=== PATIENT | female | born 1985 | race Caucasian/White ===

== ENCOUNTER → 2019-07-11 14:40 | Outpatient (CLI) | payer BC, SELFPAY ==
--- NOTE | ~2019-07-11 | US_ITS ---
EXAMINATION: US transvaginal DATE: 07/11/2019 14:56 INDICATION: Polycystic ovary syndrome. Elevated testosterone. Comparison:08/06/2017 TECHNIQUE: Multiple transabdominal and endovaginal sonographic images of the pelvis performed. FINDINGS: The uterus measures 6.7 x 4 x 4.8 cm. The endometrial complex measures 8 mm. The right ovary measures 2.8 x 3 x 1.9 cm and the left ovary measures 2.6 x 2.3 x 1.8 cm. There are small follicles in each ovary. There is a small amount of free fluid in the pelvis. There are no abnormal masses seen on either side . IMPRESSION: 1. Normal pelvic ultrasound. Reviewed, dictated and finalized at location A.
== END ==
PROVIDERS: PCP Physician Assistant; Visit Provider Internal Medicine Endocrinology, Diabetes & Metabolism
DX: E28.2 Polycystic ovarian syndrome (principal)
CPT/HCPCS: 76830

== ENCOUNTER 2022-05-04 12:36 | Emergency (ER) | payer BC, SELFPAY ==
[2022-05-04 12:39] VITALS: BP 114/87; PULSE 120; RESP 20; TEMP 36.4; O2SAT 100
--- NOTE | 2022-05-04 13:24 | ED.EAR ---
HPI - Ear Problem General Chief complaint: Ear Stated complaint: bilateral ear pain Time Seen by Provider: 05/04/22 13:15 History of Present Illness HPI Narrative: 36-year-old female who is 26 weeks presents to the emergency room complaining of bilateral ear pain, sinus drainage and a productive cough for 4 days. Patient has been taking Robitussin and Tylenol with no relief of symptoms. Denies any hearing changes. Related Data Home Medications Medication Instructions Recorded Confirmed prenat.vits,mary grace,[id number] 1 tablet PO DAILY 03/15/20 04/04/22 aspirin 81 mg capsule 81 mg PO DAILY 01/29/22 04/04/22 Allergies Allergy/AdvReac Type Severity Reaction Status Date / Time Sulfa (Sulfonamide Allergy Intermediate Hives / Verified 04/23/22 14:44 Antibiotics) Red Face Penicillins Allergy Unknown Unknown Verified 04/23/22 14:44 sulfanilamide Allergy Unknown Unknown Verified 04/23/22 14:44 Review of Systems Review of Systems: CONSTITUTIONAL: Denies fever, chills, or sweats. EYES: Denies visual changes, redness, or discharge. ENT: Reports rhinorrhea, congestion CARDIOVASCULAR: Denies chest pain, palpitations, or edema. RESPIRATORY: Denies cough or dyspnea. GASTROINTESTINAL: Denies abdominal pain, nausea, vomiting, or diarrhea. GENITOURINARY: Denies dysuria or hematuria. SKIN: Denies rash or itching. MUSCULOSKELETAL: Denies back pain, joint pain, or myalgia. NEUROLOGIC: Denies headache, numbness, dizziness, or weakness. PSYCHIATRIC: Denies anxiety or depression. [facility] Past Medical History Medical History Asthma Iker's disease Infertility, female Vaginal delivery Surgical History Surgical History History of dilation and curettage Family History Family History Other Family history of malignant neoplasm of male breast Family history of malignant neoplasm of ovary Social History Social History Smoking status: Never smoker Second hand tobacco smoke exposure: No Smoking end date: 05/04/07 Alcohol intake: current Exam Narrative: GENERAL: Well-appearing, well-nourished, no physical limitations, and in no acute distress. HEAD: Normocephalic, atraumatic. EYES: Conjunctivae normal, PERRLA and EOMI. ENT: External nose normal, Nares clear, no rhinorrhea or epistaxis. Mucous membranes moist. Oropharynx without tonsillar hypertrophy exudate or other lesions. External ears normal, bilateral TMs normal with clear effusion bilaterally NECK: Supple. No adenopathy or masses. CHEST: Clear to auscultation. No respiratory distress. No wheezes rales or rhonchi. HEART: Regular rate and rhythm. No murmur heard. Normal peripheral pulses. EXTREMITIES: Normal range of motion. No edema. No clubbing or cyanosis SKIN: Warm, dry, no rash. No noted wounds NEURO: No focal deficits. Alert and oriented x3. MAEW. CN's II-XI intact bilaterally, normal gait PSYCH: Cooperative. Normal mood and affect. Course Course Emergency Course: 1345: Spoke to MD Gallo, she is agreeable to Rx of Tyree and Melvin for patient's symptoms. Vital Signs Vital signs: Vital Signs Temperature 36.4 C 05/04/22 12:39 Pulse Rate 120 H 05/04/22 12:39 Respiratory Rate 20 05/04/22 12:39 Blood Pressure 114/87 05/04/22 12:39 Pulse Oximetry 100 05/04/22 12:39 Oxygen Delivery Room Air 05/04/22 12:39 Temperature 36.4 C 05/04/22 12:39 Pulse Rate 120 H 05/04/22 12:39 Respiratory Rate 20 05/04/22 12:39 Blood Pressure 114/87 05/04/22 12:39 Pulse Oximetry 100 05/04/22 12:39 Oxygen Delivery Room Air 05/04/22 12:39 Medical Decision Making Vital Signs Vital Signs: Vital Signs Temperature 36.4 C 05/04/22 12:39 Pulse Rate 120 H 05/04/22 12:39 Respiratory Rate 20
== END 2022-05-04 14:11 | disposition home or self-care (01) ==
PROVIDERS: Emergency Provider Nurse Practitioner Family; PCP Physician Assistant
DX: O99.512 Diseases of the respiratory system complicating pregnancy, second trimester (principal); J06.9 Acute upper respiratory infection, unspecified; O99.891 Other specified diseases and conditions complicating pregnancy; H92.03 Otalgia, bilateral; J45.909 Unspecified asthma, uncomplicated; O99.282 Endocrine, nutritional and metabolic diseases complicating pregnancy, second trimester; E06.3 Autoimmune thyroiditis; Z87.891 Personal history of nicotine dependence; Z79.82 Long term (current) use of aspirin; Z3A.26 26 weeks gestation of pregnancy
CPT/HCPCS: 59025; 96372; 99283; J1100

== ENCOUNTER 2022-07-31 13:33 | Outpatient (RCR) | payer BC, SELFPAY ==
[2022-05-04 12:27] VITALS: BP 121/79; PULSE 114
[2022-07-23 17:43] VITALS: BP 123/83; PULSE 104
[2022-07-28 09:03] VITALS: BP 133/84; PULSE 118
--- NOTE | 2022-07-28 09:51 | PC.NURSE ---
Dr Neal notified of variable decels noted on tracing and US results. OK to mn home.
--- NOTE | ~2022-07-31 | US_ITS ---
EXAMINATION: US OB limited DATE: 07/28/2022 09:26 INDICATION: Variable decelerations. Decreased movement. Third trimester. TECHNIQUE: Real-time pelvic ultrasound was performed. COMPARISON: None. FINDINGS: There is a single living fetus in vertex presentation. The placenta is fundal and posterior. h eart rate is 147 beats per minute (bpm). The cervical length is 5.0 cm on transabdominal images, whic h is normal. The amniotic fluid index is 10.5 cm, which is normal. Biophysical profile performed by the technologist: breathing (30 sec sustained breathing in 30 minutes): 2 out of 2 movement (3 gross body movements in 30 minutes): 2 out of 2 tone (one episode of iifjktb-ysfrdfwre-betrqgf limb movement): 2 out of 2 Amniotic fluid pocket (2 cm): 2 out of 2 Total score: 8 out of 8 IMPRESSION: 1. Single living fetus in vertex presentation. 2. Biophysical profile 8 out of 8. Reviewed, dictated and finalized at location A.
--- NOTE | ~2022-07-31 | US_ITS ---
EXAMINATION: US OB limited DATE: 07/31/2022 14:40 INDICATION: Amniotic fluid index assessment during third trimester TECHNIQUE: Real-time ultrasound of the pelvis was performed. The interpreting radiologist was not pre sent for the study. COMPARISON: None. FINDINGS: There is a single living fetus in vertex presentation. The placenta is to the left. c ardiac activity and movement are noted. heart rate is 137 beats per minute (bpm). The amn iotic fluid index is 11.4 cm which is normal (normal range: 7.3 cm to 23.9 cm). IMPRESSION: 1. Single living fetus in vertex presentation. 2. Normal amniotic fluid index. Reviewed, dictated and finalized at location F.
[2022-07-31 14:45] VITALS: BP 121/81; PULSE 100
== END 2022-08-02 23:59 | disposition home or self-care (01) ==
LOC: ANHOBOP 13:33
PROVIDERS: PCP Physician Assistant; Visit Provider Obstetrics & Gynecology
DX: O36.8120 Decreased fetal movements, second trimester, not applicable or unspecified (principal); Z3A.26 26 weeks gestation of pregnancy; Z3A.37 37 weeks gestation of pregnancy; O09.813 Supervision of pregnancy resulting from assisted reproductive technology, third trimester; Z3A.38 38 weeks gestation of pregnancy
CPT/HCPCS: 59025; 76815

== ENCOUNTER 2022-08-06 08:30 | Inpatient (IN) | payer BC, SELFPAY ==
[2022-08-06] VITALS (119 sets, daily range): BP systolic 98–156; BP diastolic 66–103; PULSE 85–138; TEMP 36.6–36.8; O2SAT 93–100; BMI 27.8
--- NOTE | 2022-08-06 09:04 | LDADM ---
This patient, Komal Stein, was admitted to Labor/Delivery/Recovery 105 on 08/06/22 at 08:30. Plans for labor, pain management and were discussed with patient. Patient/family oriented to hospital policies and general routines including ID bracelet, bed and alarms, visiting hours, pain management, procedures, bathroom and other care routines, personal items, smoking policy, room service/diet and guest tray routines, security routines, and visiting hours. Patient/Family are encouraged to report perceived risks to care and to ask questions if they do not understand what they are told or what they should do. See OBIX for further documentation.
[2022-08-06 09:07] LABS: Basophils Absolute Auto 0.1 K/mm3 (0.0-0.1); Basophils Percent Auto 0.4 % (0.2-1.2); Eosinophils Absolute Auto 0.5 K/mm3 (0-0.3); Eosinophils Percent Auto 3.8 % (0-4.4); Hematocrit 41.5 % (37.0-47.0); Hemoglobin 13.4 g/dL (12.0-15.0); Immature Granulocyte Absolute 0.09 K/mm3 (0.00-0.031); Immature Granulocyte Percent A 0.7 % (0-0.5); Lymphocytes Absolute Auto 2.02 K/mm3 (0.9-3.2); Lymphocytes Percent Auto 16.2 % (18.3-44.2); Mean Corpuscular HGB Conc 32.3 g/dl (32-36); Mean Corpuscular Hemoglobin 27.4 pg (26-34); Mean Corpuscular Volume 84.9 fl (80-100); Mean Platelet Volume 10.2 fl (7.4-10.4); Monocytes Absolute Auto 0.8 K/mm3 (0.1-0.6); Monocytes Percent Auto 6.1 % (2.6-8.5); Neutrophils Absolute Auto 9.1 K/mm3 (1.3-6.7); Neutrophils Percent Auto 72.8 % (45.5-73.1); Platelet Count Result 279 k/mm3 (150-375); Red Blood Count 4.89 M/mm3 (4.2-5.4); Red Cell Distribution Width 16.4 % (11.5-14.5); White Blood Count 12.4 K/mm3 (4.5-10.0)
--- NOTE | 2022-08-06 12:49 | WPDANESEPP ---
Anes - Eval Pre Procedure Procedure: labor epidural Date/Time: 08/06/22 12:49 Preop Diagnosis: labor pain Pre Op Diagnosis: iol Patient Data Age: 37 Gender: F Height: 1.65 m Weight: 76 kg Last Vital Signs Pulse 111 H 08/06/22 09:31 BP 131/92 H 08/06/22 09:31 O2 Del Method Room Air 08/06/22 09:04 Allergies Allergy/AdvReac Type Severity Reaction Status Date / Time Sulfa (Sulfonamide Allergy Intermediate Hives / Verified 07/31/22 14:57 Antibiotics) Red Face Penicillins Allergy Unknown Unknown Verified 07/31/22 14:57 sulfanilamide Allergy Unknown Unknown Verified 07/31/22 14:57 Home Medications Medication Instructions Recorded Confirmed Type prenat.vits,mary grace,[id number] 1 tablet PO DAILY 03/15/20 08/06/22 History aspirin 81 mg capsule 81 mg PO DAILY 01/29/22 08/06/22 History fluticasone propionate 50 1 spray intranasal BID #16 grams 05/04/22 08/06/22 Rx mcg/actuation nasal spray,suspension (Flonase Allergy Relief) ferrous sulfate 325 mg (65 mg 325 mg PO DAILY 07/17/22 08/01/22 History iron) tablet (Iron (ferrous sulfate)) Laboratory Tests 08/06/22 08/06/22 08/06/22 08:58 08:58 08:58 WBC 12.4 K/mm3 H K/mm3 (4.5-10.0) RBC 4.89 M/mm3 M/mm3 (4.2-5.4) Hgb 13.4 g/dL g/dL (12.0-15.0) Hct 41.5 % % (37.0-47.0) MCV 84.9 fl fl (80-100) MCH 27.4 pg pg (26-34) MCHC 32.3 g/dl g/dl (32-36) RDW 16.4 % H % (11.5-14.5) Plt Count 279 k/mm3 k/mm3 (150-375) MPV 10.2 fl fl (7.4-10.4) Immature Gran % (Auto) 0.7 % H % (0-0.5) Neut % (Auto) 72.8 % % (45.5-73.1) Lymph % (Auto) 16.2 % L % (18.3-44.2) [place] % (Auto) 6.1 % % (2.6-8.5) Eos % (Auto) 3.8 % % (0-4.4) Baso % (Auto) 0.4 % % (0.2-1.2) Lymph # (Auto) 2.02 K/mm3 K/mm3 (0.9-3.2) [place] # (Auto) 0.8 K/mm3 H K/mm3 (0.1-0.6) Eos # (Auto) 0.5 K/mm3 H K/mm3 (0-0.3) Baso # (Auto) 0.1 K/mm3 K/mm3 (0.0-0.1) Abs Immat Gran (auto) 0.09 K/mm3 H K/mm3 (0.00-0.031) Absolute Neuts (auto) 9.1 K/mm3 H K/mm3 (1.3-6.7) Absolute Nucleated RBC 0.0 K/mm3 K/mm3 (0.0-0.012) Nucleated RBC % 0.0 % % (0.0-0.2) RPR Pending Blood Type A Positive Antibody Screen Negative Patient hx anesthesia problems: none Family hx anesthesia problems: none Results Review: All pre-operative results and documents have been reviewed as part of the pre-operative evaluation. [facility] Past Medical History Medical History Asthma Iker's disease Infertility, female Vaginal delivery Surgical History Surgical History History of dilation and curettage Family History Family History Mother Breast cancer Hypertension Social History Social History Smoking status: Never smoker Second hand tobacco smoke exposure: No Smoking end date: 05/04/07 Alcohol intake: former Alcohol use details: Not since Substance use: never Lack of Transportation: No Lack of Food: Never True Current Housing: I Have Housing Concerned About Future Housing: No Difficulty Paying Gas/Electric Bills: No Difficulty Paying for Meds: No Currently Unemployed: No Education: Bachelor's Degree Difficulty w/ Childcare or Family Care: No Living arrangements: with family Occupation/Education: occupation Gender identity (if verbalized by the patient): Female Sexual Orientation (if Verbalized by the Patient): Straight or Heterosexual Spiritual care concerns: No Exam Day of Procedure 08/06/22 12:49 Patient weight
[2022-08-06] MEDS: LACTATED RINGERS 1,000 ML 125 ML IV CONT ×2 (13:08→17:05)
[2022-08-06] MEDS: OXYTOCIN 30 UNITS/NS 500 ML 30 UNITS/500 ML BAG IV CONT (13:08)
--- NOTE | 2022-08-06 14:28 | PM.IMHP ---
H&P: HPI History of Present Illness Date/Time: 08/06/22 14:28 Chief Complaint: medical induction of labor Narrative: patient is a at 39-,5/7 weeks based on an EDC of 08/08/2022 by IVF conception. She is here for medical induction of labor. course significant for hypothyroidism thyroid levels have been stable on medication. advanced maternal age. she did have a low-lying placenta until 3rd trimester which did resolve. She has opted for induction of labor with a favorable cervix. Labs have been reviewed. GBS negative. Review of Systems Review of Systems: All systems reviewed & are unremarkable except as noted in HPI and below Constitutional: Constitutional: Reports no additional constitutional complaints and Denies headache(s) Eyes: Eyes: Denies spots in vision ENT: Reports system reviewed and no additional complaints, except as documented and Denies headache(s) Cardiovascular: Cardiovascular: Denies chest pain and Denies dyspnea Respiratory: Respiratory: Denies dyspnea Gastrointestinal: Gastrointestinal: Reports no additional gastrointestinal complaints Genitourinary: Genitourinary: Reports amenorrhea Musculoskeletal: Musculoskeletal: Reports no additional musculoskeletal complaints Integumentary/Breasts: Skin/Breast: Denies breast mass and Denies rash Neurologic: Denies headache(s) Psychiatric: Psychiatric: Reports no additional psychiatric complaints PMFSH Past Medical History Medical History Asthma Iker's disease Infertility, female Vaginal delivery Surgical History Surgical History History of dilation and curettage Family History Family History Mother Breast cancer Hypertension Social History Social History Smoking status: Never smoker Second hand tobacco smoke exposure: No Smoking end date: 05/04/07 Alcohol intake: former Alcohol use details: Not since Substance use: never Lack of Transportation: No Lack of Food: Never True Current Housing: I Have Housing Concerned About Future Housing: No Difficulty Paying Gas/Electric Bills: No Difficulty Paying for Meds: No Currently Unemployed: No Education: Bachelor's Degree Difficulty w/ Childcare or Family Care: No Living arrangements: with family Occupation/Education: occupation Gender identity (if verbalized by the patient): Female Sexual Orientation (if Verbalized by the Patient): Straight or Heterosexual Spiritual care concerns: No Meds Home Medications and Allergies Home Medications Medication Instructions Recorded Confirmed Type prenat.vits,mary grace,[id number] 1 tablet PO DAILY 03/15/20 08/06/22 History aspirin 81 mg capsule 81 mg PO DAILY 01/29/22 08/06/22 History fluticasone propionate 50 1 spray intranasal BID #16 grams 05/04/22 08/06/22 Rx mcg/actuation nasal spray,suspension (Flonase Allergy Relief) ferrous sulfate 325 mg (65 mg 325 mg PO DAILY 07/17/22 08/01/22 History iron) tablet (Iron (ferrous sulfate)) Allergies Allergy/AdvReac Type Severity Reaction Status Date / Time Sulfa (Sulfonamide Allergy Intermediate Hives / Verified 07/31/22 14:57 Antibiotics) Red Face Penicillins Allergy Unknown Unknown Verified 07/31/22 14:57 sulfanilamide Allergy Unknown Unknown Verified 07/31/22 14:57 Vital Signs Vital Signs - 24 hr 08/06/22 09:11 08/06/22 09:16 08/06/22 09:31 Temperature Pulse Rate 110 H 107 H 111 H Blood Pressure 128/92 H 124/88 131/92 H Oxygen Delivery 08/06/22 13:08 08/06/22 13:31 08/06/22 14:00 Temperature 97.9 F Pulse Rate 97 103 H 111 H Blood Pressure 144/89 H 127/84 135/93 H Oxygen Delivery 08/06/22 09:04 Temperature Pulse Rate Blood Pressure Oxygen Deliver
--- NOTE | 2022-08-06 14:31 | PM.OBPNLAB ---
Pain Control Date/time seen: 08/06/22 14:31 Comments: heart tones 140s category 1 tracing occasional contractions cervix 2 60% -3, AROM clear. Will augment with Pitocin if no labor within two hours.
--- NOTE | 2022-08-06 17:46 | WPDANESEPN ---
Anes - Epidural Procedure Note Date/Time: 08/06/22 17:46 Consent: I have discussed with the patient/family/POA, the placement of an epidural catheter and the use of epidural narcotic/local anesthetic for labor analgesia and/or postoperative pain management, including associated potential risks, benefits, complications and side effects. I have discussed alternative methods of labor analgesia and/or postoperative pain management. The patient/family/POA, understand(s) and wish(es) to proceed with epidural narcotic/local anesthetic for labor analgesia and/or postoperative pain management. Time-Out: A pre-procedural Time-Out was completed immediately before starting the procedure and confirmed: Patient Identification, Site, Procedure, Patient Position and the Availability of Requisite Equipment. Clinical Indications: labor pain Epidural Insertion Note Patient position: sitting Skin prep: chlorhexidine and sterile drape Needle: 18g Tuohy-Schliff Catheter: 20g Unstyleted Technique: Loss of resistance. Level of insertion: L3/4 Catheter skin niecy (cm): 4 Length in epidural space (cm): 9 Skin anesthesia: lidocaine 1% Test dose: 1.5% Lidocaine with [id number] Epi, negative for subarachnoid Inj and negative for intravascular Inj Time of test dose: 17:37 Observations: tolerated well Complications: none
[2022-08-07] VITALS (53 sets, daily range): BP systolic 111–145; BP diastolic 66–97; PULSE 95–152; RESP 16–18; TEMP 36.4–37.2; O2SAT 82–100
[2022-08-07] MEDS: OXYTOCIN 30 UNITS/NS 500 ML 30 UNITS/500 ML BAG 999 UNITS IV CONT (01:04)
--- NOTE | 2022-08-07 01:19 | PM.OBPRVD ---
OB - Delivery Note Procedure Delivery date: 08/07/22 Procedure: Spontaneous vaginal delivery Events: Other (IVF conception, Hypothyroidism) Intrapartal Events: Other (maternal tachycardia no fever) Induction method: AROM Delivery augmentation: Pitocin Delivery monitor: External FHT and Internal Uterine Route of delivery: Laceration Description: Labial (left superior) Delivery repair: vicryl (approximated with 3.0 vicryl) Specimen: No Quantitative Blood Loss (ml): 200 Anesthesia type: Epidural Disposition: Floor Complications: None Narrative: She was admitted for [facility]. She had irregular contractions. She has AROM clear at approximately 0815. She was monitored for several hours and was not in active labor. Pitocin was started. She had an epidural placed on request. She progressed to active labor. She dilated to complete and delivered a male infant over intact perineum. Nose mouth suctioned with bulb at perineum. Two loose nuchal cords were manually reduced. The anterior shoulders and then the rest of the baby was delivered. was vigorously crying upon delivery and placed on maternal abdomen. Terminal meconium noted. Delayed cord clamping for 45 sec. and then cord was cut. Cord gases obtained. Placenta delivered spontaneously and intact. She sustained a left superior labia minora laceration. 3.0 vicryl was used for approximation. Hemostasis noted. [place] Baby Date of : 08/07/22 Time of : 12:57 Weeks of gestation at delivery: 39 Infant gender: Male presentation: vertex position: Right Occiput Anterior Placenta delivery description: Spontaneous Cord Vessel Description: 3 Vessels, Nuchal Cord (x2), Loose, Clamped/Cut and Delayed Cord Clamping score one minute: 9 score five minutes: 9
[2022-08-07] MEDS: ACETAMINOPHEN 500 MG TABLET 1000 MG PO (01:45)
[2022-08-07] MEDS: OXYTOCIN 30 UNITS/NS 500 ML 30 UNITS/500 ML BAG 125 UNITS IV CONT (01:45)
--- NOTE | 2022-08-07 04:15 | OBPPTRN ---
Patient transferred to post room #280 via w/c. Support person present. Oriented to unit, room, information board, rooming in, admission packet and security measures. Patient verbalizes understanding.
[2022-08-07] MEDS: DOCUSATE SODIUM 100 MG CAPSULE PO (09:13)
[2022-08-07] MEDS: MULTIVIT/MIN/PREN/FOL AC/IRON TABLET 1 TAB PO (09:13)
[2022-08-07] MEDS: IBUPROFEN 600 MG TABLET PO (09:13)
[2022-08-07 15:09] LABS: Rapid Plasma Reagin Non-Reactive (NonReactive)
--- NOTE | 2022-08-07 16:05 | PC.NURSE ---
[id number] Consulted mother concerning needs. Infant is in the bassinet demonstrating early feeding cues. Reviewed feeding cues with father of baby while mother is in the shower. Encouraged skin to skin with mother when she is out of the shower. Father voiced understanding of education and will call. [phone] Consulted after a request. Mother is attempting to latch her after skin to skin time to the left breast. Mother appears uncomfortable using the cross cradle positioning and received assistance with a different position to see if that was more comfortable. Mother was supported, was supported at nipple level and latched optimally to the right breast using football positioning. Mother is relaxed and comfortable denying pain effectively . Resources used to facilitate learning were used with the tool, mom and baby guide. Mother voiced understanding of skin to skin, stimulating with massage touch, responsive feedings, hand expressed colostrum, talking to infant to encourage if it has been 2 -2.5 hours since the start of the last , to call if infant does not latch, or if there is discomfort with . Mother voiced understanding of information, demonstrated learning and will call if there is a request for assistance. Reported to primary RN.
[2022-08-08 04:36] LABS: Hematocrit 34.4 % (37.0-47.0); Hemoglobin 11.1 g/dL (12.0-15.0)
--- NOTE | 2022-08-08 07:14 | WPDANLDPN2 ---
Anes-Prog Note L&D Date/Time: 08/08/22 07:14 Comfortable throughout: labor and delivery Neuraxial method: epidural Epidural/Spinal procedure site: clean & non-tender Neuro status: Neuro function grossly intact. Cardiovascular status: normal Respiratory status: normal Airway patency: baseline Mental status: baseline Post-Op hydration status: normal Vital Signs: Last Vital Signs Temp 36.4 C 08/07/22 19:40 Pulse 107 H 08/07/22 19:40 Resp 18 08/07/22 19:40 BP 120/80 08/07/22 19:40 Pulse Ox 99 08/07/22 12:17 O2 Del Method Room Air 08/07/22 19:40 Pain score (VAS): 1 I/O: Intake & Output 08/07/22 08/07/22 08/08/22 15:59 23:59 07:59 Intake Total 400 Balance 400 Post-procedural complaints: none Patient feedback: Patient satisfied with anesthetic care.
[2022-08-08 07:40] VITALS: BP 121/89; PULSE 95; RESP 16; TEMP 37.1; O2SAT 100
[2022-08-08] MEDS: MULTIVIT/MIN/PREN/FOL AC/IRON TABLET 1 TAB PO (09:18)
[2022-08-08] MEDS: ACETAMINOPHEN 325 MG TABLET 650 MG PO (09:18)
[2022-08-08] MEDS: DOCUSATE SODIUM 100 MG CAPSULE PO (09:18)
--- NOTE | 2022-08-08 12:24 | PC.NURSE ---
[phone] RN was requested to see patient related to parents were unable to wake to breastfeed. Upon entering RN visualized mother holding swaddled in a cradle position and father of baby in a chair. Introductions were made, then consulted with patient to assess needs related to . Mother led the conversation with her?plans to feed?her infant and the?experience so far. Mother works well with her infant with encouragement and education. Encouraged understanding of the benefits of skin to skin (demonstrating unwrapping infant and placing upright on her chest), stimulating with massage touch, changing positions to encourage wakefulness, how to watch for early feeding cues, responsive feeding, feeding on demand (aiming for 8-12 times in 24 hours, about every 2-3 hours), milk production,hand expression, building/maintaining a milk supply, duration of feeding, signs of adequate intake/output and how to record on the feeding sheet. was able to maintain latch without discomfort to mother and effective breastfeed. Education given to mother of how to visualize suck/swallow ratios and listen for drinking at the breast. Nipple care reviewed with optimal latch and good positioning. Mother led the conversation with her experience and plan to feed her infant so far and her ability to independently latch infant optimally without discomfort. Reminded parents to use good handwashing technique to prevent infection. Mother is feeding appropriately for growth of infant and understands stimulating to eat if needed. Infant has had appropriate feedings in the last 24 hours meets the outcomes for weight, output and jaundice at this time. Reviewed how to best prevent an increase of jaundice with intake and output of stool. Mother states she is confident to continue effectively /pumping her at home, when to call for assistance and denies any additional assistance or education at this time. Reinforced understanding of milk production, transition of milk, signs of adequate intake, transition of stool, prevention/relief of engorgement, responsive watching for feeding cues, the different methods of stimulating infant to breastfeed 2-3 hours after the start of the last feeding, community resources, and when to call a provider using the resource of the mom and baby guide. Mother voiced understanding of the education shared. Reported to the primary RN.
--- NOTE | 2022-08-08 12:31 | PM.OBDSVD ---
DS: Admitting Diagnosis Discharge Date 08/08/22 Admitting Diagnosis intrauterine at term labor OB - DS: Summary OB Procedures : None OB Procedures Intrapartum: Spontaneous Vag Delivery OB Procedures: : None Status at Discharge Functional status at discharge: independent ambulation Overall status at discharge: patient is back to baseline Time Spent with Patient Time attestation: Total time spent providing and/or coordinating discharge services: Time spent: Less than 30 minutes Exam Const: General: comfortable and no acute distress Resp: Effort & Inspection: normal respiratory effort Auscultation: clear to auscultation bilaterally Cardio: Rate: regular rate GI: GI Palp: Yes Soft to palpation Auscultation: normal bowel sounds Other: Fundus firm below umbilicus Psych: Appearance: grossly normal Mental Status: mental status grossly normal Affect: normal affect DS: Data Data Completed and Pending Labs on day of discharge: Labs from last 24 hours 08/08/22 08/06/22 04:16 08:58 Hgb 11.1 L Hct 34.4 L RPR Non-reactive Discharge Plan Discharge Attending physician on discharge: Skyler Neal Discharging Clinician: Maximo Chinchilla Patient Disposition: Home, Self-Care Activity: as tolerated and pelvic rest Diet: regular Patient Instructions: Antibiotic Form, Vaginal Delivery (DC) Stand Alone Forms: General Discharge Information Follow-up/Referrals: Skyler Neal MD [Physician] - Discharge Medications: New acetaminophen 500 mg tablet 500 mg PO Q6H PRN (Reason: pain) Qty: 30 0RF ibuprofen 600 mg tablet 600 mg PO Q6H PRN (Reason: pain) Qty: 30 0RF Continued prenat.vits,mary grace,[id number] Tablet 1 tablet PO DAILY aspirin 81 mg capsule 81 mg PO DAILY ferrous sulfate [Iron (ferrous sulfate)] 325 mg (65 mg iron) Tablet 325 mg PO DAILY fluticasone propionate [Flonase Allergy Relief] 50 mcg/actuation spray,suspension 1 spray intranasal BID Qty: 16 0RF Rx Instructions: administer into each nostril Date of admission: 08/06/22 08:30 Primary Care Provider: DaríoEsther Admitting Provider: Skyler Neal Attending physician on admission: Skyler Neal Condition: Stable
--- NOTE | 2022-08-08 18:54 | PC.NURSE ---
1500 Patient viewed the discharge video Mother & Baby Care, The First Two Weeks . Patient was given the opportunity and encouraged to ask questions. Patient verbalized understanding of information shared and has been given the mother/baby guide for home reference.
[2022-08-11 09:47] VITALS: BP 136/96; PULSE 97; RESP 16; TEMP 36.6; O2SAT 99
== END 2022-08-08 18:02 | disposition home or self-care (01) | DRG 807 ==
LOC: ANHOB2 08-08 16:31 → ANHLDR 08-11 11:58 → ANHOB2 08-11 11:58
PROVIDERS: Admitting Provider Obstetrics & Gynecology; PCP Physician Assistant; Visit Provider Student in an Organized Health Care Education/Training Program
DX: O99.284 Endocrine, nutritional and metabolic diseases complicating childbirth (principal); Z37.0 Single live birth; Z3A.39 39 weeks gestation of pregnancy; E03.9 Hypothyroidism, unspecified; O69.81X0 Labor and delivery complicated by cord around neck, without compression, not applicable or unspecified; O99.42 Diseases of the circulatory system complicating childbirth; R00.0 Tachycardia, unspecified; O70.0 First degree perineal laceration during delivery
CPT/HCPCS: 36415; 59025; 76819; 85014; 85018; 85025; 86592; 86850; 86900; 86901; A9270; J2590; J2795; J7120

== ENCOUNTER 2022-08-11 10:46 | Outpatient (CLI) | payer BC, SELFPAY ==
[2022-08-11 11:00] VITALS: BP 141/89; PULSE 87
[2022-08-11 11:14] LABS: Basophils Absolute Auto 0.1 K/mm3 (0.0-0.1); Basophils Percent Auto 0.8 % (0.2-1.2); Eosinophils Absolute Auto 0.4 K/mm3 (0-0.3); Eosinophils Percent Auto 3.9 % (0-4.4); Hematocrit 38.8 % (37.0-47.0); Hemoglobin 12.4 g/dL (12.0-15.0); Immature Granulocyte Absolute 0.14 K/mm3 (0.00-0.031); Immature Granulocyte Percent A 1.5 % (0-0.5); Lymphocytes Absolute Auto 1.99 K/mm3 (0.9-3.2); Lymphocytes Percent Auto 20.7 % (18.3-44.2); Mean Corpuscular Hemoglobin 27.9 pg (26-34); Mean Corpuscular Volume 87.2 fl (80-100); Mean Platelet Volume 9.7 fl (7.4-10.4); Monocytes Absolute Auto 0.7 K/mm3 (0.1-0.6); Monocytes Percent Auto 6.8 % (2.6-8.5); Neutrophils Absolute Auto 6.4 K/mm3 (1.3-6.7); Neutrophils Percent Auto 66.3 % (45.5-73.1); Platelet Count Result 263 k/mm3 (150-375); Red Blood Count 4.45 M/mm3 (4.2-5.4); Red Cell Distribution Width 15.9 % (11.5-14.5); White Blood Count 9.6 K/mm3 (4.5-10.0)
[2022-08-11 11:15] VITALS: BP 147/87; PULSE 89
[2022-08-11 11:27] LABS: Alanine Aminotransferase 24 U/L (6-35); Albumin Level 3.6 g/dL (3.5-5.1); Alkaline Phosphatase 132 U/L (38-126); Anion Gap 5 mmol/L (8-16); Aspartate Amino Transferase 22 U/L (14-36); Bilirubin,Total 0.4 mg/dL (0.2-1.3); Blood Urea Nitrogen 10 mg/dL (7-17); Calcium 8.5 mg/dL (8.4-10.2); Carbon Dioxide 26 mmol/L (22-30); Chloride 106 mmol/L (98-107); Estimated Glomerular Filt Rate > 60; Glucose 81 mg/dL (65-110); Potassium 4.1 mmol/L (3.4-5.0); Sodium 137 mmol/L (137-145); Uric Acid 5.6 mg/dL (2.5-7.5)
[2022-08-11 11:30] VITALS: BP 141/92; PULSE 89
[2022-08-11 11:45] VITALS: BP 152/101; PULSE 99
--- NOTE | 2022-08-11 11:55 | PC.NURSE ---
Dr Neal reviewed labs per office, ut to [facility]. Instruct patient to take BP daily and follow up in office next week. [facility].
== END 2022-08-11 11:56 | disposition home or self-care (01) ==
LOC: ANHOBOP 10:49 → ANHOBPP 10:50
PROVIDERS: PCP Physician Assistant; Visit Provider Obstetrics & Gynecology
DX: O16.5 Unspecified maternal hypertension, complicating the puerperium (principal)
CPT/HCPCS: 36415; 80053; 84550; 85025; 99199

== ENCOUNTER 2022-09-26 10:21 | Outpatient (CLI) | payer BC, SELFPAY ==
[2022-09-26 11:37] LABS: Hematocrit 45.3 % (37.0-47.0); Hemoglobin 14.9 g/dL (12.0-15.0); Mean Corpuscular HGB Conc 32.9 g/dl (32-36); Mean Corpuscular Hemoglobin 28.4 pg (26-34); Mean Corpuscular Volume 86.3 fl (80-100); Mean Platelet Volume 9.8 fl (7.4-10.4); Platelet Count Result 223 k/mm3 (150-375); Red Blood Count 5.25 M/mm3 (4.2-5.4); Red Cell Distribution Width 13.5 % (11.5-14.5); White Blood Count 4.7 K/mm3 (4.5-10.0)
[2022-09-26 11:51] LABS: Alanine Aminotransferase 151 U/L (6-35); Albumin Level 4.9 g/dL (3.5-5.1); Alkaline Phosphatase 138 U/L (38-126); Anion Gap 8 mmol/L (8-16); Aspartate Amino Transferase 61 U/L (14-36); Bilirubin,Total 0.9 mg/dL (0.2-1.3); Blood Urea Nitrogen 15 mg/dL (7-17); Carbon Dioxide 28 mmol/L (22-30); Chloride 101 mmol/L (98-107); Estimated Glomerular Filt Rate > 60; Glucose 97 mg/dL (65-110); Potassium 4.1 mmol/L (3.4-5.0); Sodium 137 mmol/L (137-145); Uric Acid 5.2 mg/dL (2.5-7.5)
[2022-09-26 12:16] LABS: Free T4 Free Thyroxine 1.03 ng/mL (0.78-2.19)
== END 2022-09-26 10:22 | disposition home or self-care (01) ==
LOC: ANHLAB 10:23
PROVIDERS: PCP Physician Assistant; Visit Provider Registered Nurse
DX: I10 Essential (primary) hypertension (principal)
CPT/HCPCS: 36415; 80053; 84439; 84443; 84550; 85027

== ENCOUNTER 2023-04-10 16:51 | Emergency (ER) | payer BC, SELFPAY ==
[2023-04-10] VITALS (8 sets, daily range): BP systolic 128–155; BP diastolic 93–113; PULSE 85–105; RESP 13–19; TEMP 36.6; O2SAT 98–100
--- NOTE | ~2023-04-10 | CT_ITS ---
EXAMINATION: CT brain wo con DATE: 04/10/2023 17:22 INDICATION: Syncope. TECHNIQUE: Computed tomography (CT) of the head was performed without intravenous contrast. The mA wa s adjusted according to patient size. Iterative reconstruction technique was employed. The dose-lengt h product was 529.67 mGy-cm. COMPARISON: None FINDINGS: There is no intracranial hemorrhage, acute infarction, or abnormal intracranial mass lesion . The ventricles are normal in size. The paranasal sinuses are clear. The mastoid air cells are starla l. The orbits are normal. IMPRESSION: 1. Normal brain. Reviewed, dictated and finalized at location E. ROGRAPHER IMPRESSION: 1. Normal brain.
--- NOTE | ~2023-04-10 | CT_ITS ---
EXAMINATION: CTA brain carotid DATE: 04/10/2023 18:12 INDICATION: Syncope. TECHNIQUE: Computed tomographic angiography (CTA) of the head was performed with 100 mL Omnipaque-350 intravenous contrast. CTA of the neck was performed with intravenous contrast. Automated exposure co ntrol and iterative reconstruction technique were employed. The dose-length product was 919.31 mGy-cm . Maximum intensity projection and volume rendered 3D-reconstructions were created by the [employer] t on a separate workstation. COMPARISON: Head CT 04/10/2023 FINDINGS: HEAD CTA: There is no intracranial hemorrhage, acute infarction, or abnormal intracranial mass lesion. The ventricles are normal in size. The paranasal sinuses are clear. The mastoid air cells are normal. The orbits are normal. The vertebral arteries are codominant. There is no significant thu nosis of basilar artery or the posterior cerebral arteries. The posterior communicating arteries are normal. There is no significant stenosis of the intracranial internal carotid arteries or anterior or middle cerebral arteries. Anterior communicating artery is normal. There is no aneurysm. NECK CTA: There is mild scarring at the lung apices. There are no pathologically enlarged lymph nodes . There is no significant stenosis of the vertebral arteries. There is mild plaque in the proximal in ternal carotid arteries. There is 0% stenosis of the proximal right internal carotid artery relative to normal distal artery lumen diameter (NASCET criteria). There is 0% stenosis of the proximal left i nternal carotid artery relative to normal distal artery lumen diameter. There is mild cervical spondy losis. IMPRESSION: 1. Normal brain. No aneurysm or significant intracranial internal stenosis. 2. 0% stenosis of the proximal internal carotid arteries relative to normal distal artery lumen diame ters (NASCET criteria). Reviewed, dictated and finalized at location E. TANK SEALER AND TESTER IMPRESSION: 1. Normal brain. No aneurysm or significant intracranial internal stenosis. 2. 0% stenosis of the proximal internal carotid arteries relative to normal dis lissa artery lumen diameters (NASCET criteria).
--- NOTE | 2023-04-10 17:04 | ECG_ITS ---
Measurements Intervals [place] Rate: 96 P: 25 VT: 129 QRS: 45 QRSD: 103 T: 45 QT: 346 QTc: 438 Interpretive Statements SINUS RHYTHM INCOMPLETE RIGHT BUNDLE BRANCH BLOCK Electronically Signed On 04-12-2023 10:14:04 STRAP MACHINE OPERATOR AUTOMATIC by Michael Tobar M.D.
--- NOTE | 2023-04-10 17:07 | ED.AMS ---
HPI - Altered Mental Status General Chief Complaint: Altered Mental Status Stated Complaint: ams Time Seen by Provider: 04/10/23 16:59 Source: patient Mode of arrival: EMS Limitations: no limitations History of Present Illness HPI narrative: Patient is a 37-year-old female who presents to the ED via EMS with report of syncope. Patient reports she was walking in her house just prior to arrival when she suddenly experienced vision changes, what she describes as red/green/blue lights in her vision bilaterally. she states it looked like a reflection of Kate lights in her glasses. She was still able to see her surroundings. She went to ask her if her eyes look normal and began feeling lightheaded when she reportedly then had a syncopal episode and fell to the ground. She did hit her head against her stairwell bannister. Per ems report, patient lost consciousness for approx 30 seconds. She did not Bite her tongue or have bowel or bladder incontinence. reported that she had slight shaking/seizure-like activity while on the ground. When she woke up, she was aware of her surroundings and who her was. No postictal phase. She c/o mild VERDUZCO currently. Denies any current vision changes. States her 8mo old daughter has had RSV this week and patient has been more tired than usual. Denies numbness or weakness in arm or leg, nausea, vomiting, dizziness, lightheadedness, chest pain, difficulty breathing. Related Data Home Medications Medication Instructions Recorded Confirmed prenat.vits,mary grace,huw-yogd-wdmye 1 tablet PO DAILY 03/15/20 08/06/22 aspirin 81 mg capsule 81 mg PO DAILY 01/29/22 08/06/22 ferrous sulfate 325 mg (65 mg 325 mg PO DAILY 07/17/22 08/01/22 iron) tablet (Iron (ferrous sulfate)) Allergies Allergy/AdvReac Type Severity Reaction Status Date / Time Sulfa (Sulfonamide Allergy Intermediate Hives / Verified 10/07/22 14:56 Antibiotics) Red Face Penicillins Allergy Unknown Unknown Verified 10/07/22 14:56 sulfanilamide Allergy Unknown Unknown Verified 10/07/22 14:56 Review of Systems Review of Systems: CONSTITUTIONAL: Denies fever, chills, or sweats. EENT: See HPI. CARDIOVASCULAR: Denies chest pain, palpitations, or edema. RESPIRATORY: Denies cough or dyspnea. GASTROINTESTINAL: Denies abdominal pain, nausea, vomiting. MUSCULOSKELETAL: Denies back pain, joint pain, or myalgia. NEUROLOGIC: see HPI. All systems reviewed & are unremarkable except as noted in HPI and below PMFSH Past Medical History Medical History Asthma Iker's disease Infertility, female Vaginal delivery Surgical History Surgical History History of dilation and curettage Family History Family History Mother Breast cancer Hypertension Social History Social History Smoking status: Never smoker Second hand tobacco smoke exposure: No Smoking end date: 05/04/07 Alcohol intake: former Alcohol use details: Not since Substance use: never Lack of Transportation: No Lack of Food: Never True Current Housing: I Have Housing Concerned About Future Housing: No Difficulty Paying Gas/Electric Bills: No Difficulty Paying for Meds: No Currently Unemployed: No Education: Bachelor's Degree Difficulty w/ Childcare or Family Care: No Living arrangements: with family Occupation/Education: occupation Gender identity (if verbalized by the patient): Female Sexual Orientation (if Verbalized by the Patient): Straight or Heterosexual Spiritual care concerns: No Exam Narrative: GENERAL: Well appearing, thin, non-toxic, in no acute distress. HEAD: Normocephalic, atraumatic. EYES: PERRL/EOMI, conjunctivae clear bilaterally. No nystagm
[2023-04-10 17:34] LABS: Basophils Percent Auto 1.1 % (0.2-1.2); Eosinophils Absolute Auto 0.1 K/mm3 (0-0.3); Eosinophils Percent Auto 3.7 % (0-4.4); Hematocrit 42.3 % (37.0-47.0); Hemoglobin 13.2 g/dL (12.0-15.0); Immature Granulocyte Absolute 0.01 K/mm3 (0.00-0.031); Immature Granulocyte Percent A 0.3 % (0-0.5); Immature Platelet Fraction Pct 7.7 % (0.9-11.2); Lymphocytes Absolute Auto 0.95 K/mm3 (0.9-3.2); Lymphocytes Percent Auto 25.1 % (18.3-44.2); Mean Corpuscular HGB Conc 31.2 g/dl (32-36); Mean Corpuscular Volume 83.4 fl (80-100); Mean Platelet Volume 11.3 fl (7.4-10.4); Monocytes Absolute Auto 0.4 K/mm3 (0.1-0.6); Monocytes Percent Auto 9.8 % (2.6-8.5); Neutrophils Absolute Auto 2.3 K/mm3 (1.3-6.7); Platelet Count Result 84 k/mm3 (150-375); Red Blood Count 5.07 M/mm3 (4.2-5.4); Red Cell Distribution Width 15.9 % (11.5-14.5); White Blood Count 3.8 K/mm3 (4.5-10.0)
[2023-04-10 17:42] LABS: Alanine Aminotransferase 57 U/L (6-35); Albumin Level 4.6 g/dL (3.5-5.1); Alkaline Phosphatase 70 U/L (38-126); Anion Gap 10 mmol/L (8-16); Aspartate Amino Transferase 87 U/L (14-36); Bilirubin,Total 1.2 mg/dL (0.2-1.3); Blood Urea Nitrogen 8 mg/dL (7-17); Calcium 9.2 mg/dL (8.4-10.2); Carbon Dioxide 25 mmol/L (22-30); Chloride 99 mmol/L (98-107); Estimated Glomerular Filt Rate > 60; Glucose 152 mg/dL (65-110); Potassium 3.7 mmol/L (3.4-5.0); Sodium 134 mmol/L (137-145)
[2023-04-10 17:43] LABS: INR 0.9; Prothrombin Time 12.8 Seconds (11.1-14.7)
[2023-04-10 17:45] LABS: Partial Thromboplastin Time 22.7 SECONDS (22.3-36.8)
[2023-04-10 17:53] LABS: Troponin I < 0.012 ng/mL (0.000-0.034)
[2023-04-10 18:11] LABS: Appearance Urine Turbid (Clear); Bacteria Urine 4+ /hpf; Bilirubin Urine 2+ (Negative); Blood Urine Negative (Negative); Calcium Oxalate Crystals Urine Present /hpf; Color Urine Dark Yellow (Yellow); Glucose Urine UA Negative (Negative); Ketones Urine 2+ mg/dL (Negative); Leukocyte Esterase Ur Negative LEU/UL (Negative); Nitrate Urine Negative (Negative); Protein Urine 1+ mg/dL (Negative); Specific Grav Ur 1.027 (1.001-1.035); Squamous Epithelial Cell Urine Many /hpf (Few); WBC Urine 0-5 /hpf; pH Urine 5.5 (5.0-9.0)
[2023-04-10 18:12] LABS: Add Urine Microscopic? YES; Amphetamine Screen Urine Negative (Negative); Barbiturate Screen Urine Negative (Negative); Benzodiazepines Screen Urine Negative (Negative); Cannabinoid Screen Urine Negative (Negative); Cocaine Screen Urine Negative (Negative); Methadone Screen Urine Negative (Negative); Opiate Screen Urine Negative (Negative); Phencyclidine Screen Urine Negative (Negative)
[2023-04-10 18:34] LABS: Influenza A QL RT-PCR Negative (Negative); Influenza B QL RT-PCR Negative (Negative); RSV RNA, RT-PCR Negative (Negative); SARS-CoV-2 RNA PCR Negative (Negative)
[2023-04-10 18:39] LABS: Magnesium 1.6 mg/dL (1.6-2.3)
[2023-04-10] MEDS: SODIUM CHLORIDE 0.9% IV 1,000 ML 999 ML IV CONT (18:39)
[2023-04-10] MEDS: MAGNESIUM SULF 1 GM/D5W 100 ML 1 GM/100 ML BAG IVPB (19:00)
--- NOTE | 2023-04-10 19:11 | PC.NURSE ---
This RN assumed care of patient. Patient report was taken from SERENITY Brennan.
--- NOTE | 2023-04-10 21:00 | PC.NURSE ---
EDp BARBER Marie confirmed it was okay for pt to be discharged with elevated vital signs.
== END 2023-04-10 21:04 | disposition home or self-care (01) ==
PROVIDERS: Emergency Provider Physician Assistant; PCP Physician Assistant
DX: R55 Syncope and collapse (principal); H53.59 Other color vision deficiencies; D69.6 Thrombocytopenia, unspecified; Z20.822 Contact with and (suspected) exposure to COVID-19; J45.909 Unspecified asthma, uncomplicated; E06.3 Autoimmune thyroiditis; Z87.891 Personal history of nicotine dependence; I45.10 Unspecified right bundle-branch block
CPT/HCPCS: 36415; 70450; 70496; 70498; 80053; 80307; 81001; 83735; 84484; 85025; 85055; 85610; 85730; 87637; 93005; 96365; 99284; J3475; J7030; Q9967

== ENCOUNTER 2023-11-02 12:36 | Emergency (ER) | payer BC, SELFPAY ==
[2023-11-02 12:42] VITALS: BP 146/104; PULSE 116; RESP 16; TEMP 36.6; O2SAT 100
--- NOTE | 2023-11-02 12:43 | ED.URI ---
HPI - URI/Sore Throat General Chief Complaint: Upper Respiratory Infection Stated Complaint: Cough Source: patient Mode of arrival: ambulatory Limitations: no limitations History of Present Illness HPI Narrative: 38-year-old female presented for complaint of sinus pressure and congestion and cough for about 3 weeks. States chest feels tight due to coughing. Took Dayquil. Denies shortness of breath, wheezing, nausea, vomiting diarrhea, fevers or chills. Related Data Home Medications Medication Instructions Recorded Confirmed amlodipine 5 mg tablet 5 mg PO DAILY 11/02/23 11/02/23 Allergies Allergy/AdvReac Type Severity Reaction Status Date / Time Sulfa (Sulfonamide Allergy Intermediate Hives / Verified 11/02/23 12:38 Antibiotics) Red Face Penicillins Allergy Unknown Unknown Verified 11/02/23 12:38 sulfanilamide Allergy Unknown Unknown Verified 11/02/23 12:38 Review of Systems Review of Systems: CONSTITUTIONAL: Denies body aches, fever, chills, or sweats. ENT: Reports rhinorrhea, congestion, sore throat CARDIOVASCULAR: Denies chest pain, palpitations, or edema. RESPIRATORY: Reports cough, denies sob, wheezing. GASTROINTESTINAL: Denies abdominal pain, nausea, vomiting, or diarrhea. SKIN: Denies rash, itching, or wounds. MUSCULOSKELETAL: Denies back pain, joint pain, or myalgia. NEUROLOGIC: Denies headache, numbness, tingling, or weakness. All systems reviewed & are unremarkable except as noted in HPI and below PMFSH Past Medical History Medical History Asthma Iker's disease Infertility, female Vaginal delivery Surgical History Surgical History History of dilation and curettage Family History Family History Mother Breast cancer Hypertension Social History Social History Smoking status: Never smoker Second hand tobacco smoke exposure: No Smoking end date: 05/04/07 Alcohol intake: former Alcohol use details: Not since Substance use: never Lack of Transportation: No Lack of Food: Never True Current Housing: I Have Housing Concerned About Future Housing: No Difficulty Paying Gas/Electric Bills: No Difficulty Paying for Meds: No Currently Unemployed: No Education: Bachelor's Degree Difficulty w/ Childcare or Family Care: No Living arrangements: with family Occupation/Education: occupation Gender identity (if verbalized by the patient): Female Sexual Orientation (if Verbalized by the Patient): Straight or Heterosexual Spiritual care concerns: No Comments At time of signature, I have reviewed and agree with nursing past medical, surgical, social and family history unless otherwise noted. Please see nursing chart for further information. There is no relevant family history pertinent to the presenting complaint Exam Narrative: GENERAL: Well-appearing, in no acute distress. EYES: EOMI. No redness or drainage. Conjunctivae normal. ENT: Mucous membranes pink and moist. No rhinorrhea. TMs normal bilaterally. Throat normal. Uvula midline. NECK: Normal AROM. Supple. CHEST: No respiratory distress. Lungs clear to all olm[place]. HEART: Regular rate and rhythm. No murmur appreciated. ABDOMEN: Soft, nontender, nondistended, normal active bowel sounds. EXTREMITIES: Normal range of motion. No edema. SKIN: Warm, dry, no rash. Capillary refill normal. Normal skin turgor. NEURO: Alert and oriented x3. Gait steady. PSYCH: Normal affect. Course Course Emergency Course: Patient is aware of diagnosis, understands and agrees to treatment plan. Anticipatory guidance given. Patient agrees to follow-up as directed and is aware of reasons to seek care at the emergency department. Portions of this record may have been created wi
== END 2023-11-02 13:00 | disposition home or self-care (01) ==
PROVIDERS: Emergency Provider Nurse Practitioner Family; PCP Physician Assistant
DX: J32.9 Chronic sinusitis, unspecified (principal); Z87.891 Personal history of nicotine dependence; J45.909 Unspecified asthma, uncomplicated; E06.3 Autoimmune thyroiditis
CPT/HCPCS: 99213; G0463

== ENCOUNTER 2024-06-08 15:25 | Outpatient (CLI) | payer BC, SELFPAY ==
--- NOTE | ~2024-06-08 | MM_ITS ---
EXAMINATION: MM screening deonna BI w rico HISTORY: Screening TECHNIQUE: Craniocaudal and mediolateral oblique 3-D tomosynthesis images were obtained and synthetic 2-D images were generated. CAD analysis was submitted and interpreted. COMPARISON: No prior mammogram is available for comparison at this institution. BREAST PARENCHYMAL COMPOSITION: Dense: The breasts are heterogeneously dense, which may obscure small masses FINDINGS: There is no evidence of suspicious mass, calcification, or architectural distortion to sugg est malignancy in either breast. There has been no suspicious interval change. IMPRESSION: 1. No mammographic evidence of malignancy. 2. Recommend routine screening mammography in one year. BI-RADS Category 1: Negative Reviewed, dictated and finalized at location B. NUE ENFORCEMENT AGENT
--- OUTSIDE RECORDS SUMMARY | 2024-06-08 15:54 | XMS_ITS | Clinical Summary ---
Author Organization [facility] Physician Office Building [address] [place] [phone] Care Team Providers Care Saddle And Harness Maker Name Role Phone Esther Chanel Primary Care Pr ovider Allergies Active Allergy Reactions Criticality Noted Date Comments Penicillins Hives Medium 05/10/2019 Sulfa (Sulfonamide Antibiotics) Hives Medium 11/2019 Medications vit 64-kgvd-dypjt- dha 27mg iron- 800 mcg-250 mg capsule Take 1 tablet/capsul e by mouth daily Active mupirocin (BACTROBAN) 2 % ointment Apply topically 3 (three) times a day 60 g 06/02/19 25 Active methylPREDNISo lone (MEDROL DOSEPACK) 4 mg Dosepack Take as directed on package. 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 L T4 replacement if with the patient's hypothyroid or thyroid suppression if the patient hyperthyroid. The use of L T4 replacement patient with normal TSH, head is controversial but her customary. It has shown sometimes to improve patient's symptoms and prevention of the progression to full blown hypothyroidism. However 1 must be careful to keep the TSH within normal range and avoiding iatrogenic hyperthyroidism. Also the use of anti-inflammatory medications like and NSAIDs and / or steroids is indicated patient with moderate to severe local symptoms. I have advised her to take a aspirin 325 mg 2- 3 times a day to see this helps with the tenderness Will recheck thyroid function tests including TSH free T4 and T3 and will adjust dose of the levothyroxine accordingly Encounters Date Type Department Care Team Description 06/02/2024 11:45 AM ASSOCIATE AGENT INSURANCE SALES Telemedicine [facility] Medical Group Virtual Care [address] [place] [phone] Yarelis Salgado NP Dermatitis (Primary Dx) 06/02/2024 Patient Self-Triage [facility] HealthCare/ Physicians [address] [place] [phone] Mychart, Generic Provider 06/02/2024 Patient Self-Triage [facility]/ Physicians [address] [place] [phone] Mychart, Generic Provider 03/11/2024 4:11 AM ASSOCIATE AGENT INSURANCE SALES - 03/11/2024 11:59 PM ASSOCIATE AGENT INSURANCE SALES Hospital Encounter [facility] [address], [address] [place] [address] Discharge Disposition: Discharge to home or self care from Last 3 Months Surgical History Surgery Date Site/Laterality Comments DILATION AND CURETTAGE OF UTERUS 05/04/2018 - 05/03/2019 Missed Ab Medical History Medical History Date Comments Anxiety Fatigue Asthma Iker's thyroiditis Hypertension Family History Medical History Relation Name Comments Heart disease Father Hypertension Father Thyroid disease Father Breast cancer Mother Cancer Mother Hypertension Mother Infertile Mother Migraines Mother Seizures Mother Thyroid cancer Paternal Grandmother Relation Name Status Comments Father Mother Paternal Grandmother Social History Tobacco Use Types Packs/Day Years Used Date Smoking Tobacco: Never Cigarettes Smokeless Tobacco: Never Alcohol Use Standard Drinks/Week Comments Yes 0 (1 standard drink = 0.6 oz pur e alcohol) 1-2 AUDIT-C Answer Date Recorded Frequency of Alcohol Consumption Not on file 09/04/2020 Q2: How many drinks containi ng alcohol do you have on a typical day when you are drinking? 7 to 9 09/04/2020 Frequency of Binge Drinking Not on file 08/2020 PHQ-2 Answer Date Recorded PHQ-2 Score 1 05/10/2019 Comments Unknown Sex and Gender Information Value Date Recorded Sex Assigned at Not on file Legal Sex Female 3:13 PM ASSOCIATE AGENT INSURANCE SALES Gender Identity Female 09/04/2020 9:45 AM CDT Sexual Orientation Not on file Obstetrics History Para Term AB IAB SAB Ectopic Multiple Livin g Live Births 5 1 1 3 1 1 1 Date Outcome GA Total Labor Labor/2nd/3rd Weight Sex Type Anes PTL Lucrecia A1 A5 Name Clin 2014 Term 3.317 kg (7 lb 5 oz) F Vag-S pont Living 9 AB 12w 0d D&C 9 AB 6w0 d SAB 2 SAB Comments G1 - spontaneous conception G2 - Trisomy 21 on genetic testing G3 - biochemical G4 - 1D5 ET on 07/08/21, bichemical G5 - 1d5 ET on 11/20/21 Last Filed Vital Signs Vital Sign Reading Time Taken Comments Blood Pressure 118/78 01/02/2022 11:04 AM CDT Pulse 75 12/26/2021 1:26 PM CDT Temperature 36.7 C (98.1 F) 07/03/2021 10:26 AM ASSOCIATE AGENT INSURANCE SALES Respiratory Rate 20 07/03/2021 11:25 AM ASSOCIATE AGENT INSURANCE SALES Oxygen Saturation 100% 07/03/2021 11:25 AM ASSOCIATE AGENT INSURANCE SALES Inhaled Oxygen Concentration - - Weight 56.7 kg (125 lb) 01/02/2022 11:04 AM CDT Height 167.6 cm (5' 6 ) 12/26/2021 1:26 PM CDT Body Mass Index 20.18 12/26/2021 1:26 PM CDT Plan of Treatment Health Maintenance Due Date Last Done Comments Cervical Cancer Screening 1985 DTaP/Tdap/Td Vaccine (1 - Tdap) 1996 Varicella Vaccines (1 of 2 - 13+ 2-dose series) 1998 Hepatitis B Screening 2003 Regular Well Visit/Exam 18-64 2003 Depression Screening 05/10/2020 05/10/2019 Influenza Vaccine (#1) 2024 03/10/2020 Hepatitis C Screening Completed 04/02/2021 HPV Vaccines Aged Out No longer eligi ble based on patient's age to complete this topic Pneumococcal vaccine <65 Aged Out No longer eligible based on patient's age to complete this topic Procedures Procedure Name Priority Date/Time Associated Diagnosis Comments HEPATITIS C ANTIBODY Routine 04/02/2021 11:34 AM ASSOCIATE AGENT INSURANCE SALES Encounter for screening for infections with predominantly sexual mode of transmission from Last 3 Months or Most Recently Relevant to Health Maintenance Results * Hepatitis C antibody (04/02/2021 11:34 AM ASSOCIATE AGENT INSURANCE SALES) Hep C Ab Nonreactive Nonreactive [facility] Comment:Antibodies to HCV no t detected. Does NOT exclude the possibility of recent exposure to HCV. Blood 04/02/2021 11:3 4 AM ASSOCIATE AGENT INSURANCE SALES 04/02/2021 5:03 PM ASSOCIATE AGENT INSURANCE SALES us Elida Chino MD LAB MICROBIOLOGY - GENERAL OR DERABLES Edited Result - Final [facility] Department [place] [address] from Last 3 Months or Most Recently Relevant to Health Maintenance Insurance [facility] ACCESS CHOICE [place] ANTHE[place] ACC[place] CHOICE ANTHEM ACCESS CHOICE Member Subscriber Plan / Payer (Ef fective 2019-Present) Name:Komal Stein Relation to Subscriber:Self Name:Komal Stein Payer ID:[id number] (NAIC) Type:BC ALLIANCE Address: [facility] [id number] [place] [id number] Advance Directives For more information, please contact: [phone] * Full Code (Latest Code Status on File) Date Activated Date Inactivated Comments 07/03/2021 8:32 AM 07/04/2021 4:54 AM Care Teams Saddle And Harness Maker Relationship Specialty Start Date End Date Esther Chanel PA PCP - General Physician Gunner'S Mate G 04/13/19
--- OUTSIDE RECORDS SUMMARY | 2024-06-08 15:54 | XMS_ITS | Referral Summary ---
[facility] Organization [facility] [address] [place] [phone] Care Team Providers Care Knurling Machine Tender Name Role Phone Esther Chanel Primary Care Pr ovider Encounters Date Type Department Care Team Description 06/02/2024 11:45 AM NET MOBILE DEVELOPER Telemedicine [facility] Medical Group Virtual Care [address] [place] [phone] Yarelis Salgado NP Dermatitis (Primary Dx) 06/02/2024 Patient Self-Triage [facility] HealthCare/ Physicians [address] [place] [phone] Mychart, Generic Provider 06/02/2024 Patient Self-Triage [facility]/ Physicians [address] [place] [phone] Mychart, Generic Provider 03/11/2024 4:11 AM NET MOBILE DEVELOPER - 03/11/2024 11:59 PM NET MOBILE DEVELOPER Hospital Encounter [facility] [address] [place] [address], [facility] [address] [place] [address] Discharge Disposition: Discharge to home or self care from Last 3 Months Allergies Active Allergy Reactions Criticality Noted Date Comments Penicillins Hives Medium 05/10/2019 Sulfa (Sulfonamide Antibiotics) Hives Medium 11/2019 Medications vit 65-bjut-bqkiu- dha 27mg iron- 800 mcg-250 mg capsule [...] MOUTH THREE TIMES DAILY 270 tablet 12/10/19 025 Discontinued Active Problems Problem Noted Date Diagnosed Date 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 Assessment & Plan (05/10/2019 1:12 PM NET MOBILE DEVELOPER): I explained to the patient how the [...] will adjust dose of the levothyroxine accordingly Social History Tobacco Use Types Packs/Day Years [...] on file Legal Sex Female 3:13 PM NET MOBILE DEVELOPER Gender Identity Female 09/04/2020 9:45 AM CDT Sexual Orientation Not on file Last Filed Vital Signs Vital Sign Reading Time Taken Comments Blood Pressure 118/78 01/02/2022 11:04 AM CDT Pulse 75 12/26/2021 1:26 PM CDT Temperature 36.7 C (98.1 F) 07/03/2021 10:26 AM NET MOBILE DEVELOPER Respiratory Rate 20 07/03/2021 11:25 AM NET MOBILE DEVELOPER Oxygen Saturation 100% 07/03/2021 11:25 AM NET MOBILE DEVELOPER Inhaled Oxygen Concentration - - Weight 56.7 kg (125 lb) 01/02/2022 11:04 AM CDT Height 167.6 cm (5' 6 ) 12/26/2021 1:26 PM CDT Body Mass Index 20.18 12/26/2021 1:26 PM CDT Plan of Treatment Not on file Procedures Procedure Name Priority Date/Time Associated Diagnosis Comments HEPATITIS C ANTIBODY Routine 04/02/2021 11:34 AM NET MOBILE DEVELOPER Encounter for screening for infections with predominantly sexual mode of transmission from Last 3 Months or Most Recently Relevant to Health Maintenance Results * Hepatitis C antibody (04/02/2021 11:34 AM NET MOBILE DEVELOPER) Hep C Ab Nonreactive Nonreactive [facility] Comment:Antibodies to HCV no t detected. Does NOT exclude the possibility of recent exposure to HCV. Blood 04/02/2021 11:3 4 AM NET MOBILE DEVELOPER 04/02/2021 5:03 PM NET MOBILE DEVELOPER us Elida Chino MD LAB MICROBIOLOGY - GENERAL OR DERABLES Edited Result - Final [facility] Department [place] [address] from Last 3 Months or Most Recently Relevant to Health Maintenance Insurance [place]THE[place]ESS CHOICE [place] CHO[place] ANTHEM ACCESS CHOICE Advance Directives For more information, please contact: [phone] * Full Code (Latest Code Status on File) Date Activated Date Inactivated Comments 07/03/2021 8:32 AM 07/04/2021 4:54 AM Care Teams Knurling Machine Tender Relationship Specialty Start Date End Date Esther Chanel PA PCP - General Physician Chest Painting Leader 04/13/19
--- OUTSIDE RECORDS SUMMARY | 2024-06-08 15:54 | XMS_ITS | Encounter Summary ---
Author Organization [facility] Address [facility] [place] [address] Care Team Providers Care Wafer Fab Operator Name Role Phone Esther Chanel Primary Care Provider [phone] Encounter Details Date Type Department Care Team (Latest Contact Info) Description 04/21/2023 MyChart Message Enc [facility] Multispecialty Care - [facility] [address] [facility], [address] [place] [address] Kevin Cason MD 3 [place], [place] [address] Note for driving Social History Tobacco Use Types Packs/Day Years Used Date Smoking Tobacco: Former Cigarettes Passive Smoke Exposure: Past Smokeless Tobacco: Never Alcohol Use Standard Drinks/Week Comments Yes 0 (1 standard drink = 0.6 oz pur e alcohol) 2 or 3 drinks a night PHQ-2 Answer Date Recorded Patient Health Questionnaire-2 Score 0 04/20/2023 Comments Unknown Sex and Gender Information Value Date Recorded Sex Assigned at Not on file Legal Sex Female 8:06 AM CDT Gender Identity Not on file Sexual Orientation Not on file documented as of this encounter Plan of Treatment Upcoming Encounters Date Type Department Care Team (Late st Contact Info) Description 08/18/2024 9:00 AM CDT Office Visit [facility] [place] [address] Odilia Maxwell PA [address] [facility] [address] [place] [address] documented as of this encounter Visit Diagnoses Not on filedocumented in this encounter Care Teams Wafer Fab Operator Relationship Specialty Start Date End Date Esther Chanel PA [address] [place] [address] PCP - General PHYSICIAN GRAY MIXING OPERATOR 04/20/23 documented as of this encounter
--- OUTSIDE RECORDS SUMMARY | 2024-06-08 15:54 | XMS_ITS | Clinical Summary ---
Author Organization [facility] Address [address] [place] [phone] Phone Care Team Providers Care Well Service Floor Worker Name Role Phone Jose R Ip, Non-Integrated Physician Primary Care Provider Social History Tobacco Use Types Packs/Day Years Used Date Smoking Tobacco: Never Assessed Comments Unknown Sex and Gender Information Value Date Recorded Sex Assigned at Not on file Legal Sex Female 8:48 AM CDT Gender Identity Not on file Sexual Orientation Not on file Plan of Treatment Health Maintenance Due Date Last Done Comments DTAP/TDAP/TD VACCINES (1 - Tdap) 2004 HEPATITIS B VACCINES (1 of 3 - 19+ 3-dose series) 2004 CERVICAL CANCER SCREENING 2015 INFLUENZA VACCINE (#1) 2023 HPV VACCINES Aged Out No longer eligi ble based on patient's age to complete this topic Insurance [facility] BLUE ACCESS/TRUE BLUE PPO Care Teams Well Service Floor Worker Relationship Specialty Start Date End Date Jose R Ip, Non-Integrated PhysicianMD [address] [place] [address] [place] [address] PCP - General Internal Medicine 01/09/14
--- OUTSIDE RECORDS SUMMARY | 2024-06-08 15:54 | XMS_ITS | Encounter Summary ---
Author Organization [facility] Address [address] [place] [address] Care Team Providers Care Preparation Operator Name Role Phone Esther Chanel Primary Care Provider [phone] Encounter Details Date Type Department Care Team (Late Contact Info) Description 05/28/2023 MyChart Message Enc [facility] Medical Group Multispecialty Care - [facility] [address] [facility], [address] [place] [address] Kevin Cason MD 3 [place] [address] MRI Social History Tobacco Use Types Packs/Day Years [...] Encounters Date Type Department Care Team (Late Contact Info) Description 08/18/2024 9:00 AM CDT Office Visit [facility], [address] [place] [address] Odilia Dubon PA [address] [facility] [address] [place] [address] documented as of this encounter Visit Diagnoses Not on filedocumented in this encounter Care Teams Preparation Operator Relationship Specialty Start Date End Date Esther Chanel PA [address] [place] [address] PCP - General PHYSICIAN ORACLE DATABASE DEVELOPER 04/20/23 documented as of this encounter
--- OUTSIDE RECORDS SUMMARY | 2024-06-08 15:54 | XMS_ITS | Continuity of Care Document ---
Author Organization [facility] Address [address] [place] [address] Phone Care Team Providers Care Pipe Finishing Supervisor Name Role Phone Unavailable Unavailable Unavailable Advance Directives Directive Yes / No Effective Date File Name No Information Encounters Encounter Description Practice Location Reason(s) For Visit Diagnoses Date Provider Providers Copied on Encounter [facility], [address] [facility], [place], [place], [id number], [place] tel:[phone] [facility] No Information No Information Referring Provider: JENNY FAULKNER, [address] [place] [address],[place], [address]. tel:[phone] Family History Family Member Type Diagnosis Age At Onset No Information Payers Payer name Insurance type Covered green party ID Authoriza xiang(s) [facility] PPO [id number] Social History Type Description Quantity Date Captured Comments Sex Female Smoking Status No Information Chief Complaint And Reason For Visit No Information History Of Present Illness Encounter Date Complaint History Of Prese nt Illness No Information Instructions Date Instruction Additional Infor mation No Information Assessments Type Assessment Date No Information
--- OUTSIDE RECORDS SUMMARY | 2024-06-08 15:54 | XMS_ITS | Clinical Summary ---
Author Organization [facility] Address [address] [place] [address] Care Team Providers Care Chemist Organic Name Role Phone Esther Chanel Primary Care Provider [phone] Allergies Active Allergy Reactions Criticality Noted Date Comments Penicillins Hives Medium 05/10/2019 Sulfa Antibiotics Hives Medium 05/10/2019 Medications amLODIPine (NORVASC) 5 MG tablet Take 1 tablet (5 mg total) by mouth daily. 30 tablet 6 09/15/2023 Active Drospirenone (SLYND) 4 MG Tab daily. 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 Overview (06/08/2023): Last Assessment & Plan: I explained to the patient how the [...] will adjust dose of the levothyroxine accordingly Family History Medical History Relation Comments CABG Father AAA Mother Relation Status Comments Father Alive Mother Alive Social History Tobacco Use Types Packs/Day Years Used Date Smoking Tobacco: Some Days Cigarettes 0.3 10 Passive Smoke Exposure: Past Smokeless Tobacco: Never Tobacco Cessation:Ready to Q uit: Not Asked; Counseling Given: Yes Comments:2-3 cigs per day Alcohol Use Standard Drinks/Week Comments Yes 0 (1 standard drink = 0.6 oz pur e alcohol) 2 or 3 drinks a night PHQ-2 Answer Date Recorded Patient Health Questionnaire-2 Score 0 07/20/2023 Comments Unknown Sex and Gender Information Value Date Recorded Sex Assigned at Not on file Legal Sex Female 8:06 AM CDT Gender Identity Not on file Sexual Orientation Not on file Last Filed Vital Signs Vital Sign Reading Time Taken Comments Blood Pressure 130/82 02/25/2024 11:14 AM CDT Pulse 93 02/25/2024 11:14 AM CDT Temperature 36.8 C (98.3 F) 12/01/2023 2:10 PM CDT Respiratory Rate 16 07/20/2023 1:57 PM CDT Oxygen Saturation 99% 02/25/2024 11:14 AM CDT Inhaled Oxygen Concentration - - Weight 56.7 kg (125 lb) 02/25/2024 11:14 AM CDT Height 167.6 cm (5' 6 ) 02/25/2024 11:14 AM CDT Body Mass Index 20.18 02/25/2024 11:14 AM CDT Plan of Treatment Upcoming Encounters Date Type Department Care Team (Late st Contact Info) Description 08/18/2024 9:00 AM CDT Office Visit [facility] [address] [place], [place] [id number] Odilia Dubon PA [address] [facility] [address] [place], [place] [id number] Health Maintenance Due Date Last Done Comments Cervical Cancer Screening Agustín vásquez Smear (Age 30 to 64) Every 3 Years 1985 Annual Physical 1988 Pneumococcal Vaccine: Pediatrics (0 to 5 Years) and At-Risk Patients (6 to 64 Years) (1 of 2 - PCV) 1991 Hepatitis C 2003 Hepatitis B Vaccines (1 of 3 - 19+ 3-dose series) 2004 Cervical Cancer Screening Agustín vásquez with HPV Testing (Age 30 to 64) Every 5 Years 2015 Cervical Cancer Screening wi th HPV 2015 COVID-19 Vaccine (3 - 2023-2 5 season) 2024 09/06/2020, 08/16/2020 Influenza Adult (#1) 2024 03/10/2020 PHQ-2 (Physician [place]) 05/04/2024 07/20/2023 DTaP, Tdap and Td Vaccines ( 2 - Td or Tdap) 07/10/2032 07/10/2022 HPV Vaccines Aged Out No longer eligi ble based on patient's age to complete this topic Meningococcal B Vaccine Aged Out No l onger eligible based on patient's age to complete this topic Meningococcal Vaccine Aged Out No nina roe eligible based on patient's age to complete this topic RSV Immunizations Under 20 Months Aged Out No longer eligible b ased on patient's age to complete this topic Insurance [facility] Care Teams Chemist Organic Relationship Specialty Start Date End Date Esther Chanel PA [address] [place] [address] PCP - General PHYSICIAN REFRIGERATOR GLAZIER 04/20/23
== END 2024-06-08 15:26 | disposition home or self-care (01) ==
LOC: ANHIMG 15:26
PROVIDERS: PCP Physician Assistant; Visit Provider Nurse Practitioner Obstetrics & Gynecology
DX: Z12.31 Encounter for screening mammogram for malignant neoplasm of breast (principal); Z80.3 Family history of malignant neoplasm of breast
CPT/HCPCS: 77063; 77067